=== PATIENT | male | born 1995 | race Caucasian/White ===

== ENCOUNTER → 2018-06-22 | Outpatient (CLI) | payer BC ==
--- NOTE | 2018-06-22 15:51 | RAD ---
EXAM: AP pelvis, AP and frog-leg lateral views of the right hip DATE: 06/22/2018 12:00 AM INDICATION: RIGHT HIP AND PELVIC PAIN TIMES 8 MONTHS. NO INJURY COMPARISON: No Prior FINDINGS: Hip joint spaces are preserved. 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 No evidence of acute fracture or dislocation. Stool and gas within the rectum limits evaluation of the sacrum. IMPRESSION: No evidence of acute fracture or dislocation. 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 Electronically signed by: Jama Jara MD (06/22/2018 3:48 PM) [id number]
== END | disposition home or self-care (01) ==
LOC: RAD 15:20
DX: M25.551 Pain in right hip (principal)
CPT/HCPCS: 73502

== ENCOUNTER 2019-02-16 11:32 | Emergency (ER) | payer BC ==
[~2019-02-16] VITALS: Ht 182.9 cm; Wt 80.3 kg
[2019-02-16] MEDS ORDERED: IV NORMAL SALINE 1,000ML 1,000 ML IV SCH (11:46)
[2019-02-16] MEDS ORDERED: KETOROLAC 30 MG/ML VIAL. IVP ONE (12:00)
[2019-02-16] MEDS ORDERED: PROCHLORPERAZINE 10 MG/2 ML VIAL. IV ONE (12:00)
--- NOTE | 2019-02-16 12:01 | PHYS DOC ---
Past History Past Medical History: No Pertinent History Past Surgical History: No Surgical History Smoking: Non-smoker Alcohol Use: Occasionally Drug Use: None Adult General Chief Complaint Chief Complaint: FLANK PAIN [facility] HPI Patient is a 23-year-old male presents complaining of left flank pain that radiates into his left testicle that started at approximately 10:00 this morning. There is nausea without any vomiting. No trauma. No hematuria. No previous history of discomfort like this. No dysuria. He has taken a dose of ibuprofen without any significant improvement. Nothing seems to make the symptoms better or worse. He is unable to describe the nature of the discomfort, reports that it is severe.[] Review of Systems Review of Systems Constitutional: Denies fever or chills [] Eyes: Denies change in visual acuity, redness, or eye pain [] HENT: Denies nasal congestion or sore throat [] Respiratory: Denies cough or shortness of breath [] Cardiovascular: No additional information not addressed in HPI [] GI: See history of present illness[] : Denies dysuria or hematuria, see history of present illness [] Musculoskeletal: Denies back pain or joint pain [] Integument: Denies rash or skin lesions [] Neurologic: Denies headache, focal weakness or sensory changes [] Endocrine: Denies polyuria or polydipsia [] All other systems were reviewed and found to be within normal limits, except as documented in this note. Allergies Allergies Allergies Coded Allergies Type Severity Reaction Last Updated Verified Sulfa (Sulfonamide Antibiotics) Allergy Unknown 02/16/19 Yes Physical Exam Physical Exam Constitutional: Well developed, well nourished, moderate to severe discomfort. [] HENT: Normocephalic, atraumatic, bilateral external ears normal, oropharynx moist, no oral exudates, nose normal. [] Eyes: PERRLA, EOMI, conjunctiva normal, no discharge. [] Neck: Normal range of motion, no tenderness, supple, no stridor. [] Cardiovascular:Heart rate regular rhythm, no murmur [] Lungs & Thorax: Bilateral breath sounds clear to auscultation [] Abdomen: Bowel sounds normal, soft, no tenderness, no masses, no pulsatile masses. exam: Normal male, circumcised, bilateral descended testes, normal cremasteric reflex bilaterally. No rash, no urethral discharge. No inguinal lymphadenopathy. [] Skin: Warm, dry, no erythema, no rash. [] Back: No tenderness, left costovertebral angle tenderness is present. [] Extremities: No tenderness, no cyanosis, no clubbing, ROM intact, no edema. [] Neurologic: Alert and oriented X 3, normal motor function, normal sensory function, no focal deficits noted. [] Psychologic: Affect normal, judgement normal, mood normal. [] EKG EKG [] Radiology/Procedures Radiology/Procedures PROCEDURE: CT ABDOMEN PELVIS WO CONTRAST CT Abdomen and Pelvis without contrast History: Left flank pain Technique: Noncontrast CT imaging was performed of the abdomen and pelvis. Multiplanar images are reviewed. Exposure: One or more of the following individualized dose reduction techniques were utilized for this examination: 1. Automated exposure control 2. Adjustment of the mA and/or kV according to patient size 3. Use of iterative reconstruction technique. Comparison: None Findings: There is mild left hydroureteronephrosis, approximate 0.4 cm calculus in the distal left ureter in the pelvis about 1.5 cm from the ureterovesical junction. There is appearance of circumferential mild prominence of urinary bladder ov[place]o. There is no right hydronephrosis. There are a couple of punctate inferior right renal calculi. It should be noted the entirety of the dome of the liver and left hemidiaphragm were not included on this exam.Accurate evaluation of abdominal visceral organs is limited without intravenous contrast. There is no obvious abnormality of the spleen, liver, or pancreas. Gallbladder is present without obvious intraluminal abnormality by CT. There is no adrenal nodularity. Accurate evaluation of bowel is limited without oral contrast. There is no evidence of bowel obstruction. There is no free fluid or free air. Appendix caliber is somewhat prominent 0.7 cm, cannot exclude degree of wall thickening, not associated with adjacent significant inflammatory change. There are multiple small nonspecific mesenteric nodes, larger and more numerous in the right lower quadrant, largest individual node about 0.5 cm short axis dimension. Impression: 1. There is mild left hydroureteronephrosis, 0.4 cm calculus in the distal left ureter in the pelvis. There are a couple of punctate inferior right renal calculi. There is appearance of prominence of the urinary bladder oviedo although findings may be accentuated by incomplete distention. 2. Appendix caliber is somewhat prominent, degree of wall thickening not excluded, although no significant periappendiceal inflammatory type change to confidently suggest acute appendicitis by imaging. There are nonspecific mesenteric nodes although not considered significantly enlarged.[] Course & Med Decision Making Course & Med Decision Making Pertinent Labs and Imaging studies reviewed. (See chart for details) ED course: Patient arrived, was placed in bed, and tolerated exam well. He had significant improvement with the pain medicine and antiemetics. He was transported to and from [place] with any complications. After the return of the laboratory and imaging findings, these were discussed with the patient and his family who voiced understanding. All questions were answered. He was discharged in improved condition. Medical decision making: Patient appears to have a kidney stone, no evidence of a urinary tract infection. No evidence of inadequate pain management. No evidence of by mouth intolerance. No evidence of acute renal dysfunction. No evidence of appendicitis or diverticulitis.[] Dragon Disclaimer Dragon Disclaimer This electronic medical record was generated, in whole or in part, using a voice recognition dictation system. Departure Departure: Impression: Primary Impression: Left ureteral calculus Disposition: HOME, SELF-CARE Condition: IMPROVED Referrals: LEANDRA RUSSELL (PCP) Follow-up in 2 days Patient Instructions: Diet for Kidney Stones, Kidney Stones Additional Instructions: Drink plenty of fluids. Follow-up with your regular doctor in 2 days. Strain your urine for the kidney stone and bring it with you if it passes to your urinary care doctors appointment. Return to the ER if pain not controlled with medicine, unable to tolerate liquids, fever of more than 101, pain when urinating, or any other concerns. Scripts Ibuprofen (IBUPROFEN) 800 Mg Tablet 1 TAB PO TID for pain, #30 TAB Prov: JAIDA URENA DO 02/16/19 Tamsulosin Hcl (FLOMAX) 0.4 Mg Cap.er.24h 0.4 MG PO HS for kidney stone for 10 Days, #10 CAP.SR Prov: JAIDA URENA DO 02/16/19 Ondansetron Hcl (ZOFRAN) 4 Mg Tablet 1 TAB PO Q6HRS for nausea or vomiting, #20 TAB Prov: JAIDA URENA DO 02/16/19 Hydrocodone Bit/Acetaminophen (NORCO 5-325 TABLET) 1 Each Tablet 1 TAB PO Q4-6HRS for severe pain, #20 TAB Prov: JAIDA URENA DO 02/16/19 JAIDA URENA DO Feb 16, 2019 12:01
[2019-02-16 12:08] LABS: BASO # 0.1 x10^3/uL (0.0-0.2); BASO % 1 % (0-3); EOS # 0.4 x10^3/uL (0.0-0.7); EOS % 6 % (0-3); HEMATOCRIT 45.2 % (39.0-53.0); HEMOGLOBIN 15.5 g/dL (13.0-17.5); LYMPH % 27 % (24-48); MEAN CORPUSCULAR HEMOGLOBIN 30 pg (25-35); MEAN CORPUSCULAR HGB CONC 34 g/dL (31-37); MEAN CORPUSCULAR VOLUME 88 fL (79-100); MONO # 0.6 x10^3/uL (0.0-1.1); MONO % 8 % (0-9); NEUT # 4.1 x10^3uL (1.8-7.7); NEUT % 58 % (31-73); PLATELET COUNT 246 x10^3/uL (140-400); RED BLOOD COUNT 5.12 x10^6/uL (4.30-5.70); RED CELL DISTRIBUTION WIDTH 12.5 % (11.5-14.5); WHITE BLOOD COUNT 7.2 x10^3/uL (4.0-11.0)
[2019-02-16 12:21] LABS: BACTERIA,URINE 0 /HPF (0-FEW); BILIRUBIN,URINE NEG (NEG); CLARITY,URINE CLOUDY; COLOR,URINE YELLOW; GLUCOSE,URINE NEG (NEG); NITRITE,URINE NEG (NEG); RBC,URINE 20-40 /HPF (0-2); UROBILINOGEN,URINE 0.2 mg/dL (0.2 mg/dL)
[2019-02-16 12:22] LABS: ALBUMIN 4.2 g/dL (3.4-5.0); ALBUMIN/GLOBULIN RATIO 1.6 (1.0-1.7); CALCIUM 9.4 mg/dL (8.5-10.1); CREATININE 1.1 mg/dL (0.7-1.3); POTASSIUM 3.4 mmol/L (3.5-5.1); TOTAL PROTEIN 6.8 g/dL (6.4-8.2)
[2019-02-16 12:23] LABS: AMORPHOUS SEDIMENT,UR PRESENT /HPF
[2019-02-16 12:23] LABS: TOTAL BILIRUBIN 2.1 mg/dL (0.2-1.0)
[2019-02-16 12:24] LABS: AMPHETAMINE/METHAMPHETAMINE NEG (NEG); BARBITURATES NEG (NEG); BENZODIAZEPINES NEG (NEG); CANNABINOIDS POS (NEG); COCAINE NEG (NEG); METHADONE NEG (NEG); OPIATES NEG (NEG); PHENCYCLIDINE NEG (NEG)
--- NOTE | 2019-02-16 12:35 | RAD ---
CT Abdomen and Pelvis without contrast History: Left flank pain Technique: Noncontrast CT imaging was performed of the abdomen and pelvis. Multiplanar images are reviewed. Exposure: One or more of the following individualized dose reduction techniques were utilized for this examination: 1. Automated exposure control 2. Adjustment of the mA and/or kV according to patient size 3. Use of iterative reconstruction technique. Comparison: None Findings: There is mild left hydroureteronephrosis, approximate 0.4 cm calculus in the distal left ureter in the pelvis about 1.5 cm from the ureterovesical junction. There is appearance of circumferential mild prominence of urinary bladder oviedo. There is no right hydronephrosis. There are a couple of punctate inferior right renal calculi. It should be noted the entirety of the dome of the liver and left hemidiaphragm were not included on this exam.Accurate evaluation of abdominal visceral organs is limited without intravenous contrast. There is no obvious abnormality of the spleen, liver, or pancreas. Gallbladder is present without obvious intraluminal abnormality by CT. There is no adrenal nodularity. Accurate evaluation of bowel is limited without oral contrast. There is no evidence of bowel obstruction. There is no free fluid or free air. Appendix caliber is somewhat prominent 0.7 cm, cannot exclude degree of wall thickening, not associated with adjacent significant inflammatory change. There are multiple small nonspecific mesenteric nodes, larger and more numerous in the right lower quadrant, largest individual node about 0.5 cm short axis dimension. Impression: 1. There is mild left hydroureteronephrosis, 0.4 cm calculus in the distal left ureter in the pelvis. There are a couple of punctate inferior right renal calculi. There is appearance of prominence of the urinary bladder oviedo although findings may be accentuated by incomplete distention. 2. Appendix caliber is somewhat prominent, degree of wall thickening not excluded, although no significant periappendiceal inflammatory type change to confidently suggest acute appendicitis by imaging. There are nonspecific mesenteric nodes although not considered significantly enlarged. Electronically signed by: Boubacar Alexander MD (02/16/2019 12:32 PM) [id number]
[2019-02-16 12:44] VITALS: BP 134/82
[2019-02-16] MEDS ORDERED: HYDR-3165 PO (12:57)
[2019-02-16] MEDS ORDERED: ONDA4TAB7 PO (12:57)
[2019-02-16] MEDS ORDERED: IBUP800T19 PO (12:57)
[2019-02-16] MEDS ORDERED: TAMS0.4C97 PO (12:57)
== END 2019-02-16 13:02 | disposition home or self-care (01) ==
LOC: ER 11:32
DX: N13.2 Hydronephrosis with renal and ureteral calculous obstruction (principal); Z88.2 Allergy status to sulfonamides
CPT/HCPCS: 36415; 74176; 80053; 80307; 81001; 83690; 85025; 96374; 96375; 99285; J0780; J1885; J7030